=== PATIENT | female | born 1955 | race Caucasian/White ===

== ENCOUNTER 2017-07-22 19:33 | Emergency (ER) | payer BC ==
--- NOTE | 2017-07-22 19:33 | UC ---
Cardiac HPI - HPI Summary HPI Summary: 62 YEAR OLD FEMALE PRESENTS WITH COMPLAINS OF LEFT SIDED CHEST PAIN, TACHYCARDIA AND ST DEPRESSIONS ON HER EKG. I WILL SEND HER TO [facility] FOR CARDIAC WORKUP. - History of Current Complaint Stated Complaint: LIGHT HEADED,DIZZINESS,HEART RACING Time Seen by Provider: 07/22/17 19:33 Hx Obtained From: Patient Onset/Duration: Sudden Onset Initial Severity: Severe Current Severity: Severe Chest Pain Location: Left Anterior Character: Fast, Irregular Aggravating: Rest Associated Signs & Symptoms: Positive: Negative - Allergy/Home Medications Allergies/Adverse Reactions: Allergies Allergy/AdvReac Type Severity Reaction Status Date / Time Penicillins Allergy Rash Verified 07/22/17 19:54 PMH/Surg Hx/FS Hx/Imm Hx Previously Healthy: Yes Review of Systems Constitutional: Negative Skin: Negative Eyes: Negative ENT: Negative Respiratory: Negative Cardiovascular: Palpitations, Chest Pain Gastrointestinal: Negative Genitourinary: Negative Motor: Negative Neurovascular: Negative Musculoskeletal: Negative Neurological: Negative Psychological: Negative All Other Systems Reviewed And Are Negative: Yes Physical Exam Triage Information Reviewed: Yes Vital Signs Reviewed: Yes Eye Exam: Normal ENT Exam: Normal Dental Exam: Normal Neck exam: Normal Neck: Positive: 1 Respiratory Exam: Normal Cardiovascular Exam: Normal Abdominal Exam: Normal Musculoskeletal Exam: Normal Neurological Exam: Normal Psychological Exam: Normal Skin Exam: Normal - Clinical Impression Provider Diagnoses: CHEST PAIN. TACHYCARDIA Discharge - Discharge Plan Condition: Guarded Disposition: [facility]
[2017-07-22] MEDS ORDERED: Aspirin Low Dose CHEW TAB* 81 MG PO ONE (19:45)
[2017-07-22 20:02] VITALS: BP 162/96
[2017-07-24] MEDS ORDERED: Aspirin Low Dose CHEW TAB* 81 MG ONE (10:28)
== END 2017-07-22 20:00 | disposition short-term general hospital (02) ==
LOC: UCCORT 19:33
DX: R07.9 Chest pain, unspecified (principal); R00.0 Tachycardia, unspecified; R94.31 Abnormal electrocardiogram [ECG] [EKG]
CPT/HCPCS: 93005; 99203; A9270-GY; G0463